=== PATIENT | male | born 1960 | race Caucasian/White ===

== ENCOUNTER → 2017-10-19 | Outpatient (CLI) | payer OTHER ==
[~2017-10-19] MED LIST: ALBU90OI INH; Percocet 5-3251 EACH PO
[2017-10-19 18:36] LABS: BASOPHILS ABSOLUTE AUTO 0.09 K/mm3 (0.00-0.23); BASOPHILS PERCENT AUTO 1 % (0-2); EOSINOPHILS ABSOLUTE AUTO 0.56 K/mm3 (0.00-0.68); EOSINOPHILS PERCENT AUTO 6 % (0-6); Hematocrit 51.9 % (37.0-53.0); Hemoglobin 17.1 g/dL (13.5-17.5); IMMATURE GRAN ABSOLUTE AUTO 0.04 K/mm3 (0.00-0.10); IMMATURE GRAN PERCENT AUTO 1 % (0-1); LYMPHOCYTES ABSOLUTE AUTO 1.76 K/mm3 (0.84-5.20); LYMPHOCYTES PERCENT AUTO 20 % (21-46); MONOCYTES ABSOLUTE AUTO 0.56 K/mm3 (0.16-1.47); MONOCYTES PERCENT AUTO 6 % (4-13); Mean Corpuscular HGB 32.6 pg (26.0-34.0); Mean Corpuscular HGB Conc 32.9 g/dL (31.5-36.5); Mean Corpuscular Volume 99 fL (80-100); NEUTROPHILS ABSOLUTE AUTO 5.72 K/mm3 (1.96-9.15); NEUTROPHILS PERCENT AUTO 66 % (41-73); Platelet Count 196 K/mm3 (150-400); RDW Coefficient Variation 11.5 % (11.7-14.2); RDW Standard Deviation 42.1 fL (35.1-46.3); Red Blood Cell Count 5.25 M/mm3 (4.30-5.90); White Blood Cell Count 8.73 K/mm3 (4.00-11.30)
[2017-10-19 19:10] LABS: Alanine Aminotransfer (ALT/SGP 127 U/L (12-78); Albumin, Blood 3.8 g/dL (3.4-5.0); Albumin/Globulin Ratio 0.8 (0.8-1.8); Alk Phos 117 U/L (50-136); Anion Gap 9 mmol/L (6-16); Aspartate Aminotrans (AST/SGOT 109 U/L (12-37); Bilirubin, Total 0.4 mg/dL (0.1-1.0); Blood Urea Nitrogen 10 mg/dL (8-24); Bun/Creatinine Ratio 14.6 (12.0-20.0); CO2, Blood 25 mmol/L (21-32); Calcium, Blood 9.5 mg/dL (8.5-10.1); Chloride, Blood 107 mmol/L (98-108); Creatinine, Blood 0.69 mg/dL (0.60-1.20); Free Thyroxine 0.92 ng/dL (0.70-1.60); Globulin, Blood 4.7 g/dL (2.2-4.0); Glomerular Filtration Rate >60 (60-); Glucose, Blood 158 mg/dL (70-99); Potassium, Blood 3.9 mmol/L (3.5-5.5); Sodium, Blood 141 mmol/L (136-145); Total Protein, Blood 8.5 g/dL (6.4-8.2); Uric Acid, Blood 4.9 mg/dL (3.5-7.2)
== END | disposition home or self-care (01) ==
LOC: LAB SHORT 10:54 → LAB 10:54
PROVIDERS: Nurse Practitioner Adult Health
DX: F10.10 Alcohol abuse, uncomplicated (principal); F33.0 Major depressive disorder, recurrent, mild; F17.210 Nicotine dependence, cigarettes, uncomplicated; R79.89 Other specified abnormal findings of blood chemistry
CPT/HCPCS: 80053; 84439; 84443; 84550; 85025

== ENCOUNTER 2020-09-12 03:39 | Inpatient (IN) | payer MEDICARE, OTHER ==
[~2020-09-12] VITALS: Ht 180.3 cm; Wt 82.6 kg
[2020-09-12 04:00] LABS: BASOPHILS ABSOLUTE AUTO 0.03 K/mm3 (0.00-0.23); BASOPHILS PERCENT AUTO 1 % (0-2); EOSINOPHILS ABSOLUTE AUTO 0.06 K/mm3 (0.00-0.68); EOSINOPHILS PERCENT AUTO 2 % (0-6); Hematocrit 38.4 % (37.0-53.0); Hemoglobin 13.4 g/dL (13.5-17.5); IMMATURE GRAN ABSOLUTE AUTO 0.03 K/mm3 (0.00-0.10); IMMATURE GRAN PERCENT AUTO 1 % (0-1); LYMPHOCYTES ABSOLUTE AUTO 0.69 K/mm3 (0.84-5.20); LYMPHOCYTES PERCENT AUTO 19 % (21-46); MONOCYTES ABSOLUTE AUTO 0.63 K/mm3 (0.16-1.47); MONOCYTES PERCENT AUTO 18 % (4-13); Mean Corpuscular HGB 34.5 pg (26.0-34.0); Mean Corpuscular HGB Conc 34.9 g/dL (31.5-36.5); Mean Corpuscular Volume 99 fL (80-100); Mean Platelet Volume 10.1 fL (9.1-12.4); NEUTROPHILS ABSOLUTE AUTO 2.14 K/mm3 (1.96-9.15); NEUTROPHILS PERCENT AUTO 60 % (41-73); Platelet Count 72 K/mm3 (150-400); RDW Coefficient Variation 13.4 % (11.7-14.2); RDW Standard Deviation 48.9 fL (35.1-46.3); Red Blood Cell Count 3.88 M/mm3 (4.30-5.90); White Blood Cell Count 3.58 K/mm3 (4.00-11.30)
[2020-09-12] MEDS ORDERED: FOLI400 PO (04:17)
[2020-09-12] MEDS ORDERED: GABA100 (04:17)
[2020-09-12] MEDS ORDERED: B-1100 M1 PO (04:17)
[2020-09-12] MEDS ORDERED: MULVITA PO (04:18)
[2020-09-12] MEDS ORDERED: MELATONIN5 M1 PO (04:18)
[2020-09-12 04:19] LABS: Acetaminophen, Random <2.0 ug/mL (10.0-30.0); Alanine Aminotransfer (ALT/SGP 73 U/L (12-78); Albumin, Blood 2.7 g/dL (3.4-5.0); Albumin/Globulin Ratio 0.7 (0.8-1.8); Alk Phos 116 U/L (50-136); Anion Gap 6 mmol/L (6-16); Aspartate Aminotrans (AST/SGOT 189 U/L (12-37); Bilirubin, Total 1.1 mg/dL (0.1-1.0); Blood Urea Nitrogen 9 mg/dL (8-24); Bun/Creatinine Ratio 14.4 (12.0-20.0); CO2, Blood 29 mmol/L (21-32); Calcium, Blood 9.3 mg/dL (8.5-10.1); Chloride, Blood 101 mmol/L (98-108); Creatinine, Blood 0.63 mg/dL (0.60-1.20); Ethanol (Alcohol), Blood, Med <3 mg/dL; Globulin, Blood 4.1 g/dL (2.2-4.0); Glomerular Filtration Rate >60 (60-); Glucose, Blood 118 mg/dL (70-99); Potassium, Blood 3.9 mmol/L (3.5-5.5); Salicylate 1.7 mg/dL (2.8-20.0); Sodium, Blood 136 mmol/L (136-145); Total Protein, Blood 6.8 g/dL (6.4-8.2)
[2020-09-12] MEDS ORDERED: HYDPAM50 PO (04:19)
[2020-09-12] MEDS ORDERED: CLON.1 PO (04:20)
[2020-09-12] MEDS ORDERED: METO25 PO (04:21)
[2020-09-12] MEDS ORDERED: PROM25 PO (04:23)
[2020-09-12] MEDS ORDERED: TRAZ50 PO (04:23)
[2020-09-12 14:46] LABS: Source, Urine Clean Catch
[2020-09-12 15:03] LABS: Appearance, Urine Clear (Clear); Blood, Urine Neg (Neg); Color, Urine Yellow (P-Yellow); Glucose Qualitative, Urine Neg (Neg); Ketones, Urine 1+ (Neg); Leukocyte Esterase, Urine 1+ (Neg); Nitrite, Urine Neg (Neg); Protein, Urine Neg (Neg); Urobilinogen, Urine 3+ (Normal)
[2020-09-12 15:13] LABS: Bilirubin, Urine 1+ (Neg)
[2020-09-12 15:14] LABS: Bacteria Rare /hpf; Red Blood Cells, Urine 0-2 /hpf (0-2); Squamous Epithelial Cells Not Seen /hpf (Few)
[2020-09-12] MEDS ORDERED: Primidone50 MG PO (15:51)
--- NOTE | 2020-09-12 16:25 | NUR ---
PATIENT IS ALERT AND ORIENTED WITH TIMES OF VISUAL HALLUCINATIONS. THE PATIENT IS TREMULOUS AT BASELINE ACCORDING TO HIS . THE PATIENT STARTED THIS SHIFT WITH A CIWA SCORE OF 3, WENT UP TO A CIWA SCORE OF 8 WITH THE TREMORS, ANXIETY AND HALLUCINATIONS. THE PATIENT WAS GIVEN 2MG IV ATIVAN PER EMAR. THE PATIENT'S WAS AT THE BEDSIDE DURING VISITING HOURS TODAY. MED RECONCILATION COMPLETE. NEW IV PLACED IN THE PATINET'S RIGHT WRIST. THE PATIENT DOES BECOME TACHYCARDIC WITH EXERTION. THE PATIENT DOES ATTEMPT TO GET OUT OF BED ON HIS OWN, HE IS EASILY REDIRECTABLE. WILL CONTINUE TO MONITOR.
--- NOTE | 2020-09-12 21:56 | NUR ---
CIWA SCORES THIS EVENING STARTED AT 8 AND HAVE CONTINUED TO GET WORSE THROUGHOUT THE NIGHT. CIWA SCORE NOW 14-15 AFTER 4 MG OF IV ATIVAN AND 50 MG OF PO LIBRIUM. PT WITH SEVERE TREMORS AND HALLUCINATIONS. TALKING ABOUT CATS IN THE ROOM AND MEN'S FACES IN THE CEILING. NO IMPROVEMENT AFTER ORDERED MEDICATION. PT CONSTANTLY ATTEMPTING TO GET OUT OF BED, PERSONAL CARE AIDE SITTING AT BEDSIDE AT THIS TIME TO KEEP PT IN BED. PT WANTING TO GO OUTSIDE TO SMOKE. DISORIENTED TO WHERE HE IS. PT HAS NICOTINE PATCH IN PLACE. MARIE ADVERTISING DISPATCH CLERK NOTIFIED WITH ORDERS TO TRANSFER TO ICU. ATTEMPTED TO CALL REPORT FOR ICU 14, AWAITING A CALL BACK.
--- NOTE | 2020-09-12 22:31 | NUR ---
REPORT GIVEN TO STAPLE SIDE LASTER. PT TRANSFERED TO ICU 14 VIA BED WITH ACCESS COORDINATOR AND TECHNICAL BUYER. CALL MADE TO 'S (EMA) NUMBER ON FACE SHEET WHICH APPEARED TO BE DISCONNECTED. TWO NUMBERS LISTED ON WHITE BOARD. BOTH NUMBERS PLACED IN FRONT OF CHART. ATTEMPTED TO CONTACT WITH BOTH PHONE NUMBERS. DID NOT ANSWER. MESSAGE LEFT STATING THAT PT HAD BEEN TRANSFERED TO ICU 14 AND TO CALL WITH FURTHER QUESTIONS.
--- NOTE | 2020-09-12 23:16 | NUR ---
TRANSFERED TO ICU 14 PT ARRIVED TO ICU 14 AT 2220 VIA MEDICAL FLOOR BED. PT IS ALERT BUT VERY CONFUSED. CIWA 39 WHEN ARRIVED TO ICU. PRN ATIVAN, ONCE DOSE PHENOBARBATAL, AND PRECEDEX GTT STARTED. PT THREATENED CHARGE NURSE WHEN STARTING ANOTHER IV BUT WAS REDIRECTABLE. PT CONT TO TRY AND GET OUT OF BED AND IS VERY TREMOULUS. ACTIVE VISUAL AND AUDITORY HALLUCINATION CURRENTLY. SEE FLOW SHEET FOR PRECEDEX TITRATION. HR 110-130. SBP 140-160. PT INCONTINENT OF URINE AND HAD A BRIEF CHANGE. WILL CONT TO MONITOR.
[2020-09-13 03:26] LABS: BASOPHILS ABSOLUTE AUTO 0.04 K/mm3 (0.00-0.23); BASOPHILS PERCENT AUTO 1 % (0-2); EOSINOPHILS ABSOLUTE AUTO 0.08 K/mm3 (0.00-0.68); EOSINOPHILS PERCENT AUTO 2 % (0-6); Hematocrit 38.6 % (37.0-53.0); Hemoglobin 13.3 g/dL (13.5-17.5); IMMATURE GRAN ABSOLUTE AUTO 0.02 K/mm3 (0.00-0.10); IMMATURE GRAN PERCENT AUTO 1 % (0-1); LYMPHOCYTES PERCENT AUTO 17 % (21-46); MONOCYTES ABSOLUTE AUTO 0.51 K/mm3 (0.16-1.47); MONOCYTES PERCENT AUTO 14 % (4-13); Mean Corpuscular HGB 34.6 pg (26.0-34.0); Mean Corpuscular HGB Conc 34.5 g/dL (31.5-36.5); Mean Corpuscular Volume 101 fL (80-100); Mean Platelet Volume 11.2 fL (9.1-12.4); NEUTROPHILS ABSOLUTE AUTO 2.31 K/mm3 (1.96-9.15); NEUTROPHILS PERCENT AUTO 65 % (41-73); Platelet Count 65 K/mm3 (150-400); RDW Coefficient Variation 12.9 % (11.7-14.2); RDW Standard Deviation 48.2 fL (35.1-46.3); Red Blood Cell Count 3.84 M/mm3 (4.30-5.90); White Blood Cell Count 3.56 K/mm3 (4.00-11.30)
[2020-09-13 03:45] LABS: Alanine Aminotransfer (ALT/SGP 64 U/L (12-78); Albumin, Blood 2.7 g/dL (3.4-5.0); Albumin/Globulin Ratio 0.7 (0.8-1.8); Alk Phos 104 U/L (50-136); Anion Gap 4 mmol/L (6-16); Aspartate Aminotrans (AST/SGOT 147 U/L (12-37); Bilirubin, Total 1.1 mg/dL (0.1-1.0); Blood Urea Nitrogen 8 mg/dL (8-24); Bun/Creatinine Ratio 14.3 (12.0-20.0); CO2, Blood 31 mmol/L (21-32); Chloride, Blood 103 mmol/L (98-108); Creatinine, Blood 0.56 mg/dL (0.60-1.20); Globulin, Blood 3.9 g/dL (2.2-4.0); Glomerular Filtration Rate >60 (60-); Glucose, Blood 115 mg/dL (70-99); Potassium, Blood 3.4 mmol/L (3.5-5.5); Sodium, Blood 138 mmol/L (136-145); Total Protein, Blood 6.6 g/dL (6.4-8.2)
--- NOTE | 2020-09-13 06:18 | NUR ---
END OF SHIFT SUMMARY PT LAYING IN BED SOMNULANT NOW BUT REACTS TO PAINFUL STIMULI AND OCCATIONALLY VERBAL STIMULI; CIWA SCORES RANGED FROM 39-15, MINIMAL TREMORS, HALLUCINATIONS, AND TACTILE DISTURBANCES NOTED AT THIS TIME; PRN ATIVAN GIVEN X3, PRECEDEX INFUSING AT 0.8MCG/KG/HR. AFIBRILE. SPO2 >95% ON 2L NC; SEVERE SNORING NOTED AND OCCATIONAL SLEEP APNEA. HR 70-120. SBP 110-150. WILL REPORT TO AM RN WHEN AVAILABLE.
--- NOTE | 2020-09-13 07:30 | NUR ---
ASSUMED CARE: REPORT RECEIVED FROM MIKE Salazar RN. ASSUMED CARE OF THIS PT AT APPROX 0700. ON ASSESSMENT, THE PT IS RESTING QUIETLY. HE BEGINS TO GROAN & SHIFT SELF AROUND TO VERBAL STIMULUS OF RN's DOING BEDSIDE REPORT. HE IS A&O TO SELF ONLY, OPENING EYES SLIGHTLY TO NAME BEING SAID. DOES NOT FOLLOW DIRECTION & ONLY GROANS/ MUMBLES W/ NO DISCERNABLE WORDS SAID. SEE CIWA SCORES. PRECEDEX INFUSING PER EMAR - TITRATION NOTED IN FLOWSHEET. LS DIM T/O, PT ON 2L NC FOR DESATS R/T HEAVY SNORING WHILE ASLEEP. O2 SATS > 92% ON 2L NC. MONITOR SHOWS SR W/ HR 70-80s, BP STABLE. PT NPO WHILE SEDATED FOR HIGH ASPIRATION RISK. ATTENDS IN PLACE FOR INCONTINENCE OF URINE. SKIN CONDITION OVERALL CDI. WILL CONTINUE TO MONITOR & UPDATE NEEDED.
--- NOTE | 2020-09-13 18:17 | NUR ---
SHIFT SUMMARY: NO ACUTE CHANGES SINCE PRIOR UPDATES. PT CONTINUES SLEEPING FOR MOST OF THIS SHIFT BUT DOES AWAKEN BRIEFLY & IS GENERALLY AGREEABLE TO CARE DURING THOSE TIMES. PRN ATIVAN x1 THIS SHIFT, SEE CIWA. LS DIM T/O, PT HAS REMOVED NC & NO DESATS HAVE BEEN NOTED SO THE PT REMAINS ON RA W/ O2 SATS > 92%. MONITOR SHOWS SR W/ HR 70s, BP STABLE. PT HAS NO GI COMPLAINTS, IS CURRENTLY NPO PER NURSING JUDGEMENT R/T ASPIRATION RISK. CONDOM CATH PLACED BY THIS RN FOR PT's CONTINUED INCONTINENCE & RISK FOR SKIN BREAKDOWN. SKIN OVERALL CDI. WILL CONTINUE TO MONITOR & REPORT OFF TO ONCOMING RN.
--- NOTE | 2020-09-13 21:53 | NUR ---
ASSUMED CARE AT 1900 PT LAYING IN BED SOMNULENT AND SNORING. PT ALERT AND ORIENTED EXEPT FOR PLACE, PT STATED THAT WE WERE [place], WHEN CORRECTED, PT RECALLED. PT IS REDIRECTABLE WHEN WANTING TO GET OUT OF BED. PT IS PLEASENT AND UNDERSTANDS CURRENT MEDICAL SITUATION. TEMP 100.4. SPO2 >90% ON RA. HR 70'S. SBP 150-165. PT TOLERATING SIPS OF WATER WITHOUT ASPIRATION. CONDOM CATH IN PLACE AND PATENT. PRECEDEX INFUSING AT 0.8MCG/KG/HR. NS KCL INFUSING AT 125ML/HR. SEE SHIFT ASSESSMENT FOR FULL ASSESSMENT.
--- NOTE | 2020-09-14 05:51 | NUR ---
END OF SHIFT SUMMARY PT IS ALERT/ORIENTED AND IS ABLE TO MAKE NEEDS KNOWN WHEN ASKED BUT TOO SOMNULANT TO USE CALL LIGHT. PT DID NOT ATTEMPT TO LEAVE BED T/O SHFIT. PT DID REMOVE HIS LEADS SEVERAL TIME T/O THE NIGHT BUT DECREASE IN TEMORS AND INCREASE IN DEXTERITY; NO HALLUCINATIONS NOTED. CIWA RANGED FROM 5-11. PRECEDEX INFUSING AT 0.7MCG/KG/HR. AFIBRILE. SPO2 >95% ON RA. HR 70'S. SBP 150-160'S. PT PULLED OFF CONDOM CATH, ATTENDS IN PLACE, PT INCONTINENT OF BLADDER. NS KCL INFUSING AT 125ML/HR. PT ABLE TO TOLERATE DRINKING WATER WITHOUT SIGNS OF ASPIRATION. WILL REPORT TO AM RN WHEN AVAILABLE.
--- NOTE | 2020-09-14 08:00 | NUR ---
Received repport from Tamra FRANCOIS. Patient is sleeping and will allow him to sleep until breakfast. He has 20ga RW dressing intcat and site WNL's amd is flushed and SL'd. He also has 20 ga RFA dressing intact and site WNL's and is infusing Precedex at 0.7 mcg/kg/hr and NS with 20meg K at 125 ml/hr. He calls to use urinal. His sats while sleeping on RA are 95%. he has low grade Temp 99.0.
--- NOTE | 2020-09-14 10:22 | NUR ---
Patient continues to sleep and Drips remains unchanges from last note. Gave update and she will be in at 1400. Will awake at 1030 and give meds and am care.
--- NOTE | 2020-09-14 12:15 | NUR ---
Patient awakened easily and able to answer questions. Dr Horton by and assessed patient and is sitiing up eat small amounts of a reg. diet. VSS, See EMR. Placed Precedex on standby and patient doing well. NS with k still infusing at 125 ml/hr.
--- NOTE | 2020-09-14 14:08 | NUR ---
Patient continues to stay off Precedex and has been appropriate and answers questions. VSS See EMR. NS with 20meq K at 125 ml/hr. Called Dr Horton and he is med no tele back [address].
--- NOTE | 2020-09-14 17:45 | NUR ---
Patient continues to rest in bed on RA where he sats >95%. VSS, See EMR. He continues on NS with 20 meq of K at 125 ml/hr. was by for a couple of hours and went home. He tolerated dinner about 50%.
[2020-09-15 03:40] LABS: BASOPHILS ABSOLUTE AUTO 0.03 K/mm3 (0.00-0.23); BASOPHILS PERCENT AUTO 1 % (0-2); EOSINOPHILS ABSOLUTE AUTO 0.11 K/mm3 (0.00-0.68); EOSINOPHILS PERCENT AUTO 2 % (0-6); Hematocrit 44.1 % (37.0-53.0); Hemoglobin 14.9 g/dL (13.5-17.5); IMMATURE GRAN ABSOLUTE AUTO 0.08 K/mm3 (0.00-0.10); IMMATURE GRAN PERCENT AUTO 2 % (0-1); LYMPHOCYTES ABSOLUTE AUTO 0.88 K/mm3 (0.84-5.20); LYMPHOCYTES PERCENT AUTO 19 % (21-46); MONOCYTES PERCENT AUTO 15 % (4-13); Mean Corpuscular HGB 33.9 pg (26.0-34.0); Mean Corpuscular HGB Conc 33.8 g/dL (31.5-36.5); Mean Corpuscular Volume 100 fL (80-100); Mean Platelet Volume 10.5 fL (9.1-12.4); NEUTROPHILS PERCENT AUTO 62 % (41-73); Platelet Count 82 K/mm3 (150-400); RDW Coefficient Variation 12.7 % (11.7-14.2); RDW Standard Deviation 47.6 fL (35.1-46.3)
[2020-09-15 03:58] LABS: Alanine Aminotransfer (ALT/SGP 48 U/L (12-78); Albumin, Blood 2.4 g/dL (3.4-5.0); Albumin/Globulin Ratio 0.6 (0.8-1.8); Alk Phos 106 U/L (50-136); Anion Gap 9 mmol/L (6-16); Aspartate Aminotrans (AST/SGOT 103 U/L (12-37); Bilirubin, Total 1.2 mg/dL (0.1-1.0); Blood Urea Nitrogen 9 mg/dL (8-24); Bun/Creatinine Ratio 15.4 (12.0-20.0); CO2, Blood 24 mmol/L (21-32); Calcium, Blood 8.1 mg/dL (8.5-10.1); Chloride, Blood 107 mmol/L (98-108); Creatinine, Blood 0.58 mg/dL (0.60-1.20); Globulin, Blood 4.2 g/dL (2.2-4.0); Glomerular Filtration Rate >60 (60-); Glucose, Blood 93 mg/dL (70-99); Magnesium, Blood 1.7 mg/dL (1.6-2.4); Potassium, Blood 3.8 mmol/L (3.5-5.5); Sodium, Blood 140 mmol/L (136-145); Total Protein, Blood 6.6 g/dL (6.4-8.2)
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
--- NOTE | 2020-09-15 07:27 | NUR ---
Patient awake upon entry and is able to communicate his needs. He remains on RA and sats >90%. He has medium tremors, but is able to manage tasks. He has two 20 ga IV's, RW, RFA both dressings intact and sites WNL's and RFA infusing NS with 20meq of K at 125 ml/hr. He is able to use urinal and had 200 ml's light maria ines urine. He is med floor and awaiting room.
--- NOTE | 2020-09-15 09:30 | NUR ---
Patient has been resting off and on. Dr Mcneil by and want PT to work with patient and he is a full SBA when up. VSS, See EMR. Patient wants to go home but is unable to tranfer independently. He remains on RA and sats >95.
--- NOTE | 2020-09-15 12:22 | NUR ---
Patient has been up out of bed several times, once without calling and was tremulous while up. He was very redirectable and was assisted by one back to bed. He is cooperative with his care and forgetful at times. He stated he would stay for a couple more days to get stronger and then states he wants to go home. VSS, See EMR. He remains on RA and sats >90%. NS with 20 meq of K at 125 ml/hr.
--- NOTE | 2020-09-15 14:57 | NUR ---
present in room. VSS, See EMR. Patient awake and active in bed, he tried to nap without success. NS with 20 meq of K at 125 ml/hr continues. He had a saturated attends prior to bath and was getting help with urinal. He has smoe blood with urination.
--- NOTE | 2020-09-15 17:56 | NUR ---
Patient has been quiet in bed and over last hour and now is very atimate about wanting to smoke. He is off and on about oriented to place and is not clear while complaining about smoking. His VSS and See EMR.. Medicated with ativan for anxiety and he is currently sitting up eating dinner. He has moderate tremors, but able to feed self.
--- NOTE | 2020-09-15 19:21 | NUR ---
PT ARRIVED FROM ICU TO ROOM 350 @ APPROX 1840. PT WAS A 2 PERSON ASSIST TO BED, BED ALARM IS ON DUE TO OCCASIONAL FORGETFULNESS. CALL LIGHT SYSTEM EXPLAINED AND REMOTE IS WITHIN REACH OF PT. 125 ML/HR NS+K RUNNING IN RIGHT FOREARM IV. FLUIDS PROVIDED. WILL GIVE REPORT TO ONCOMING RN.
--- NOTE | 2020-09-15 20:29 | NUR ---
AGITATION PT VERY AGITATED AND TRIED TO GET OUT OF BED SEVERAL TIMES WITHIN PAST 15 MIN. PT VERY ADAMANT ON GOING HOME. PT IS A/O X2 TO SELF AND PLACE. PT STATES 2009 YEAR. PT STATES HE IS "PISSED" AND DOES NOT WANT TO STAY IN THE HOSPITAL. PT IS FLUSHED WITH A TEMP OF 99.5. FAN PROVIDED, COOL WASH APPLIED TO FOREHEAD, BLANKETS ARE OFF. HOSPITALIST DR. SHARMA MADE AWARE, PANDA AND BILATERAL WRIST RESTRAINTS APPLIED TO PROTECT PT FROM FALLING AND FROM UNTIYING PANDA. IV ATIVAN GIVEN PER EMAR FOR CIWA SCORE OF 9. BED ALARM ON, CALL LIGHT WITHIN REACH. [facility].
--- NOTE | 2020-09-16 04:47 | NUR ---
PUBLIC RELATIONS ACCOUNT SUPERVISOR SUMMARY PT A/O X1-2 TONIGHT. PT VERY AGITATED OVERNIGHT. PT DENIES PAIN, NAUSEA. PT HAS BEEN HAVING BOTH AUDITORY AND VISUAL HALLUCINATIONS. BODY APPEARS FLUSHED AND DIAPHORETIC. PT HAS BEEN PULLING AT RESTRAINTS FREQUENTLY. NURSE HAS BEEN ALTERNATING BETWEEN IV ATIVAN AND PO LIBRIUM WHICH WOULD HELP PT RELAX FOR A PERIOD OF TIME AND THEN PT WOULD GO BACK TO BEING MORE AGITATED AGAIN AND PULLING AT RESTRAINTS. HR AND BP ELEVATED DUE TO ONGOING AGITATION. METOPROLOL GIVEN OVERNIGHT. CALL LIGHT IN PLACE, BED ALARM ON. [facility].
--- NOTE | 2020-09-16 18:48 | NUR ---
HE HAS SLEPT MOST OF THE SHIFT. HE SLEPT THROUGH BREAKFAST, REFUSED LUNCH WHEN HE WAS ALERT, SLEPT SOME MORE THEN REFUSED DINNER. WHEN HE WAS ALERT HE WAS [employer]. I GAVE HIM ATIVAN ONCE LATE THIS AFTERNOON D/T HIS VS. BP UP, PULSE SLIGHTLY UP AND RESP SLIGHTLY UP. CIWA THIS AFTERNOON 4. HIS VISITED WHEN HE WAS ALERT. SHE ALSO SPOKE IN DEPTH WITH THE CURTAIN INSPECTOR. PLAN IS FOR DC WEDNESDAY TO IN-PATIENT ALCOHOL REHAB. HIS MAY DRIVE HIM THERE. RESTRAINTS IN PLACE. IVF'S CONTINUE.
--- NOTE | 2020-09-16 21:36 | NUR ---
CARDIAC/VIEWS: PATIENT SCORES A 3 ON VIEWS AND A 3 ON CIWA. BP IS 171/11, HR 108 TEMP 100.1. PATIENT IS A&OX3, SLEEPY BUT EASILY WOKEN FOR MEDS. DENIES HEAD ACHE OR PAIN. PRN CATAPRESS AND TYLENOL ARE GIVEN AND DR JACOBSEN IS NOTIFIDE OF ABOVE. ORDERS TO STOP IVF AND GIVE HYDRALAZINE 10MG IV Q 6 H FOR SBP ABOVE 160.
--- NOTE | 2020-09-17 05:36 | NUR ---
SHIFT SUMMARY: PATIENT HAD GOOD EFFECT FROM HYDRALAZINE AND CATAPRESS, LAST BP 141/96 WITH HR OF 104 AND TEMP. 99.3. PATIENT HAS SLEPT THROUGH THE SHIFT, INC. OF LARGE AMOUNTS OF URINE. BED ALARM IS ON FOR SAFETY.
[2020-09-17 09:00] LABS: Albumin, Blood 2.5 g/dL (3.4-5.0); Anion Gap 12 mmol/L (6-16); Blood Urea Nitrogen 5 mg/dL (8-24); Bun/Creatinine Ratio 9.3 (12.0-20.0); CO2, Blood 23 mmol/L (21-32); Calcium, Blood 8.6 mg/dL (8.5-10.1); Chloride, Blood 104 mmol/L (98-108); Creatinine, Blood 0.54 mg/dL (0.60-1.20); Glomerular Filtration Rate >60 (60-); Glucose, Blood 89 mg/dL (70-99); Magnesium, Blood 1.7 mg/dL (1.6-2.4); Potassium, Blood 3.8 mmol/L (3.5-5.5); Sodium, Blood 139 mmol/L (136-145)
--- NOTE | 2020-09-17 16:52 | NUR ---
DC OXIMETRY RECEIVED T.O. TO D/C OXIMETRY FROM DR. JIANG. ORDER UPDATED, RT NOTIFIED.
--- NOTE | 2020-09-17 18:04 | NUR ---
Shift Summary A/Ox4, pleasant and cooperative. Slept throughout the day, awakens easily to verbal and tactile stimuli. Answering questions appropriately. CIWA scores were 4 t/o shift. Denies headache, hallucination, nausea, vomiting. Noticable tremors, especially with arms extended out. Denied being hungry, refused all meals today. visited briefly. Tachycardia, Tele: ST 140's. After IV lopressor given, HR @ 90's. Denies dizziness, shortness of breath, pain. Seizure pads in place. WCTM.
--- NOTE | 2020-09-18 04:56 | NUR ---
SHIFT SUMMARY PT SLEPT MOST OF THE EVENING. WOULD WAKE AND ANSWER QUESTIONS APPROPRIATELY BUT WOULD QUICKLY FALL BACK ASLEEP AGAIN. CIWA SCORES 2-4. ONLY WITH SOME TREMORS THAT PT REPORTS ARE BASELINE FOR AN UNDERLYING NEUROLOGICAL DISORDER AND SLIGHT HEADACHE THAT WAS RESOLVED WITH TYLENOL. TELEMETRY IN PLACE. TELE REPORTING SR IN THE 90'S. PT DOES NOT CALL APPROPRIATELY. YELLS OUT AT TIMES FOR STAFF, OR WILL SET OFF BED ALARM. PT INCONTINENT TONIGHT. NO ACUTE CHANGES THIS SHIFT. VITAL SIGNS STABLE. WILL CONTINUE TO MONITOR.
[2020-09-18 09:09] LABS: BASOPHILS ABSOLUTE AUTO 0.05 K/mm3 (0.00-0.23); BASOPHILS PERCENT AUTO 1 % (0-2); EOSINOPHILS ABSOLUTE AUTO 0.24 K/mm3 (0.00-0.68); EOSINOPHILS PERCENT AUTO 5 % (0-6); Hematocrit 42.9 % (37.0-53.0); Hemoglobin 14.4 g/dL (13.5-17.5); IMMATURE GRAN ABSOLUTE AUTO 0.04 K/mm3 (0.00-0.10); IMMATURE GRAN PERCENT AUTO 1 % (0-1); LYMPHOCYTES ABSOLUTE AUTO 0.65 K/mm3 (0.84-5.20); LYMPHOCYTES PERCENT AUTO 15 % (21-46); MONOCYTES ABSOLUTE AUTO 0.85 K/mm3 (0.16-1.47); MONOCYTES PERCENT AUTO 19 % (4-13); Mean Corpuscular HGB Conc 33.6 g/dL (31.5-36.5); Mean Corpuscular Volume 101 fL (80-100); Mean Platelet Volume 11.5 fL (9.1-12.4); NEUTROPHILS ABSOLUTE AUTO 2.65 K/mm3 (1.96-9.15); NEUTROPHILS PERCENT AUTO 59 % (41-73); Platelet Count 132 K/mm3 (150-400); RDW Coefficient Variation 12.6 % (11.7-14.2); RDW Standard Deviation 47.2 fL (35.1-46.3); Red Blood Cell Count 4.24 M/mm3 (4.30-5.90); White Blood Cell Count 4.48 K/mm3 (4.00-11.30)
[2020-09-18 09:25] LABS: Albumin, Blood 2.5 g/dL (3.4-5.0); Anion Gap 9 mmol/L (6-16); Blood Urea Nitrogen 13 mg/dL (8-24); Bun/Creatinine Ratio 21.4 (12.0-20.0); CO2, Blood 25 mmol/L (21-32); Calcium, Blood 8.7 mg/dL (8.5-10.1); Chloride, Blood 106 mmol/L (98-108); Creatinine, Blood 0.61 mg/dL (0.60-1.20); Glomerular Filtration Rate >60 (60-); Glucose, Blood 99 mg/dL (70-99); Magnesium, Blood 1.9 mg/dL (1.6-2.4); Phosphorus, Blood 3.9 mg/dL (2.5-4.9); Potassium, Blood 3.5 mmol/L (3.5-5.5); Sodium, Blood 140 mmol/L (136-145)
--- NOTE | 2020-09-18 16:30 | NUR ---
Shift Summary Pleasant and cooperative with care. Up ambulated x 2 this shift, 1p min assist with gait/FWW. Incontinent. visited and brought food for which patient ate. Patient is aware of discharging back to [facility] on Wednesday and agreeable. Denies pain, nausea, vomiting. Mild tremors to hands, but drastically improved from yesterday. CIWA's are 2. Denies headache. After working with PT, patient's HR increased and sustained 140's. Patient was asymptomatic. IV lopressor given and, per telemetry, ST 109's. Otherwise, no acute changes. WCTM.
--- NOTE | 2020-09-19 05:53 | NUR ---
SHIFT SUMMARY PATIENT ALERT AND ORIENTED X3. HAD NO COMPLAINTS OF PAIN. SLEPT WELL OVERNIGHT. IV PATENT AND FLUSHED. BED IN LOWEST POSITION WITH WHEELS LOCKED AND ALARM ON. CALL LIGHT WITHIN REACH. REPORT GIVEN TO ONCOMING RN.
--- NOTE | 2020-09-19 18:11 | NUR ---
PT HAS BEEN EXPRESSING WISH TO GO HOME SEVERAL TIMES TODAY, HE IS WEAK AND UNABLE TO AMBULATE, ALSO CONFUSED AT TIMES AND CAN BE DIFFICULT TO REDIRECT. HE IS TO BE DISCHARGED IN THE MORNING AT 10:00AM TO [facility]. TO TRANSPORT. NO ACUTE CHANGES NOTED, WILL CONTINUE TO MONITOR AND REPORT TO ONCOMING RN.
--- NOTE | 2020-09-20 05:35 | NUR ---
SHIFT SUMMARY PATIENT ALERT AND ORIENTED X3. HAD NO COMPLAINTS OF PAIN OR SHORTNESS OF BREATH. PATIENT WAS PLEASANT AND SLEPT WELL OVERNIGHT. IV PATENT AND FLUSHED. BED IN LOWEST POSITION WITH WHEELS LOCKED AND ALARM ON. CALL LIGHT WITHIN REACH. REPORT GIVEN TO ONCOMING RN.
[2020-09-20] MEDS ORDERED: ALBU90OI INH (09:59)
[2020-09-20] MEDS ORDERED: B-1100 M1 PO (10:01)
[2020-09-20] MEDS ORDERED: ONE DAILY ESS400 MCG PO (10:03)
--- NOTE | 2020-09-20 10:36 | NUR ---
DISCHARGE DISCHARGE INSTRUCTIONS, FOLLOW UP APPOINTMENT AND MEDICATION LIST REVIEWED WITH PT AND HIS SPOUSE. QUESTIONS/CONCERNS ANSWERED. SPOUSE AND PT VERBALLY INDICATED UNDERSTANDING OF ALL INSTRUCTIONS RECEIVED. ESCORTED OUT VIA W/C BY REVENUE SETTLEMENTS ADMINISTRATOR. PT RETURNING TO [facility] DIRECTLY.
== END 2020-09-20 10:32 | disposition home or self-care (01) | DRG 897 ==
LOC: ER 03:39 → MEDS 04:24 → ICUW 22:10 → MEDS 09-15 18:31
PROVIDERS: Emergency Medicine; Internal Medicine; ADMIT Internal Medicine
DX: F10.231 Alcohol dependence with withdrawal delirium (principal); E87.6 Hypokalemia; D69.6 Thrombocytopenia, unspecified; I10 Essential (primary) hypertension; F17.210 Nicotine dependence, cigarettes, uncomplicated
CPT/HCPCS: 36415; 80053; 80069; 81001; 83735; 85025; 87086; 94760; 94762; 96365; 96366; 96375; 97110; 97116; 97162; 97530; 99285-25; A9270; G0480; J0360; J1650; J2060; J2560; J3411; J3475; J3480; J7042; J7050

== ENCOUNTER 2022-11-02 07:28 | Day surgery (SDC) | payer MEDICARE, OTHER ==
[~2022-11-02] VITALS: Ht 177.8 cm; Wt 95.6 kg
[~2022-11-02 07:28] MED LIST changes: +B-1100 M1 PO; +CLON.1 PO; +FOLI400 PO; +GABA100; +HYDPAM50 PO; +MELATONIN5 M1 PO; +METO25 PO; +MULVITA PO; +ONE DAILY ESS400 MCG PO; +PROM25 PO; +PROP60 PO; +Primidone50 MG PO; +TRAZ50 PO
--- NOTE | 2022-11-02 08:59 | NUR ---
11/02/22 0859 Cande Basurto HISTORY, CHART, MEDICATIONS AND ALLERGIES REVIEWED BEFORE START OF PROCEDURE. PATIENT CONFIRMS NPO STATUS AND AGREES WITH SCHEDULED PROCEDURE. 3-LEAD EKG REVIEWED WITH PHYSICIAN PRIOR TO START OF PROCEDURE. MONITOR INTACT WITH CONTINUOUS PULSE OXIMETRY,CAPNOGRAPHY, 3-LEAD EKG, INTERMITTENT BP. SUPPLEMENTAL O2 TO BE TITRATED THROUGHOUT PROCEDURE TO MAINTAIN O2 SATURATION ABOVE 90%. PATIENT DETERMINED TO BE ASA APPROPRIATE FOR PROPOFOL SEDATION PRIOR TO START OF PROCEDURE BY DR. GREENE. DR GREENE INFORMED OF STOP BANG SCORE OF 6. NO CHANGE TO SEDATION PLAN PER DR. GREENE. MALLAMPATI CLASS 2 AIRWAY: COMPLETE VISUALIZATION OF THE UVULA.
--- NOTE | 2022-11-02 09:41 | NUR ---
Discharge instructions reviewed with patient. Patient verbalizes understanding. Copy given to patient to take home. Ambulatory in [facility] WITH [facility]. Discharged via wheelchair to private car for ride home.
== END 2022-11-02 22:42 | disposition home or self-care (01) ==
LOC: ORSCMMR 07:28 → ORD 08:30 → ORSCMMR 22:42
PROVIDERS: Internal Medicine Gastroenterology
PROC: 0DJD8ZZ Inspection of Lower Intestinal Tract, Via Natural or Artificial Opening Endoscopic (ICD-10-PCS; principal; 2022-11-02 08:30)
DX: Z12.11 Encounter for screening for malignant neoplasm of colon (principal); F17.210 Nicotine dependence, cigarettes, uncomplicated; F10.21 Alcohol dependence, in remission; Z79.899 Other long term (current) drug therapy
CPT/HCPCS: J2250; J2704; J7120

== ENCOUNTER 2025-06-20 06:09 | Day surgery (SDC) | payer MEDICARE ==
[~2025-06-20] VITALS: Ht 180.3 cm; Wt 81.1 kg
[~2025-06-20 06:09] MED LIST changes: +Balanced Salt Epinephrine Irrigation Solution 500 mL IR SCH; +Moxifloxacin HCL 0.5 MG/0.1 ML 0.4MLSYR LEFTEYE SCH; +Ondansetron 4 MG SoluTab MM PRN; +PHENYLEPHRINE\\TROPICAMIDE\\TETRACAINE OPHTHALMIC DILATING SOLN LEFTEYE PRN; +Povidone-Iodine 450 DROP/30 ML Solution LEFTEYE SCH; +Povidone-Iodine 450 DROP/30 ML Solution ONE; +Tetracaine HCl/Pf 0.5% Opth Soln 4 ml ONE
--- NOTE | 2025-06-20 06:35 | NUR ---
06/20/25 0635 Ping Rodriguez PT REPORTS ANXIETY LEVEL 2/10 PRIOR TO ADMINISTRATION OF VALIUM 10MG PO @ 0631. TETRACAINE IN AT 0633. PLEDGETT IN AT 0634. CALL LIGHT IN PT'S HAND. CONTINUOUS SPO2 AND HR MONITORING IN PLACE.
[2025-06-20] MEDS ORDERED: Methocarbamol500 MG PO (06:37)
[2025-06-20] MEDS ORDERED: ANORO ELLIPTA1 EAC1 IH (06:38)
--- NOTE | 2025-06-20 07:41 | NUR ---
06/20/25 0741 Tamra Willoughby HR:86 BP:147/94 RR:14 SPO2:98% ON 10L BLOW BY O2
[2025-06-20 07:59] VITALS: BP 130/83
== END 2025-06-20 08:10 | disposition home or self-care (01) ==
LOC: ORSCSDS 06:09
PROVIDERS: Student in an Organized Health Care Education/Training Program
PROC: 08RK3JZ Replacement of Left Lens with Synthetic Substitute, Percutaneous Approach (ICD-10-PCS; principal; 2025-06-20 07:30)
DX: H25.812 Combined forms of age-related cataract, left eye (principal); Z96.1 Presence of intraocular lens; I10 Essential (primary) hypertension; Z79.899 Other long term (current) drug therapy
CPT/HCPCS: A9270; J2003; V2632